=== PATIENT | female | born 1950 | race Caucasian/White ===

== ENCOUNTER 2016-07-30 16:09 | Emergency (ER) | payer OTHER, MEDICARE ==
[2016-07-30 16:15] VITALS: TEMP 97.5
--- NOTE | 2016-07-30 16:27 | CPEKG ---
Heart Rate: 54 RR Interval: 1111 P-R Interval: 192 QRSD Interval: 94 QT Interval: 452 QTC Interval: 429 P [place]: -17 QRS [place]: 7 T Wave [place]: 34 EKG Severity - NORMAL ECG - EKG Impression: SINUS RHYTHM Electronically Signed By: Meagan Cazares 30-Jul-2016 20:03:44
--- NOTE | 2016-07-30 16:32 | EDPHY ---
H & P Time Seen by Provider: 07/30/16 16:26 HPI/ROS: CHIEF COMPLAINT: chest pain HISTORY OF PRESENT ILLNESS: Patient is a 65-year-old female with a history of high cholesterol who presents emergency department with shoulder pain. Patient states she has had 4 episodes of bilateral shoulder pain over the past 2 weeks. This lasts for less than 5 minutes at a time. It is not associated with exercise. Today she had an episode of bilateral shoulder pain at around noon. She also had lightheadedness and dizziness. She denies any shortness of breath or cough. She feels well at this time. No recent travel. No leg pain or swelling. She states she has a significant history for cardiac disease. Her father had a heart attack in his 40s. Her brother had an acute HI 2 months ago. REVIEW OF SYSTEMS: My complete review of systems is negative except as mentioned in the HPI. Past Medical/Surgical History: Includes hyperlipidemia Past surgical history: Noncontributory Social history: The patient does not smoke. Family history: Patient's father had an HI in his 40s. The patient's younger brother had an HI 2 months ago. Smoking Status: Never smoked Physical Exam: Vitals noted GENERAL: Well-appearing, in no acute distress, alert. HEENT: Eyes normal to inspection, normal pharynx, no signs of dehydration. NECK: No thyromegaly, no lymphadenopathy, supple. RESPIRATORY: Clear to auscultation bilaterally, no rales, rhonchi or wheezing. CVS: Regular rate and rhythm, no rubs, murmurs, or gallops. ABDOMEN: Soft, nontender, nondistended, no organomegaly. BACK: Normal to inspection, no CVA tenderness. SKIN: Normal color, no rash, warm, dry. No pallor. EXTREMITIES: No pedal edema, no calf tenderness, no Homans sign or cords, no joint swelling. NEURO/PSYCH: Alert and oriented, normal mood and affect, normal motor sensory exam. Constitutional: Initial Vital Signs Temperature (C) 36.4 C 07/30/16 16:12 Heart Rate 61 07/30/16 16:12 Respiratory Rate 16 07/30/16 16:12 Blood Pressure 140/89 H 07/30/16 16:12 O2 Sat (%) 98 07/30/16 16:12 Allergies/Adverse Reactions: No Known Allergies Allergy (Unverified 07/30/16 16:12) Home Medications: Medication Instructions Recorded Aspirin 07/30/16 Lipitor 07/30/16 Medical Decision Making - Diagnostics EKG Interpretation: EKG shows normal sinus rhythm, rate at 54, normal axis, normal intervals. There are no ST or T-wave abnormalities. EKG is normal as interpreted by me. ED Course/Re-evaluation: In the emergency department I discussed possible etiologies with the patient. I answered all her questions. She states that she called Dr. Burgess earlier today was told to come to the emergency department for her symptoms. She took an aspirin prior to arrival. Laboratory studies, EKG and chest x-ray were ordered. The patient's laboratory studies were unremarkable. Troponin was negative. Chest x-ray normal. I discussed the results with the patient. Patient's insurance special agent was paged. I discussed the case with Dr. Burgess from Cardiology. She recommended a repeat troponin at 3 hours. This was ordered for 7:30 p.m.. I discussed the plan with the patient and answered all her questions. On recheck the patient was chest pain-free with no shortness of breath. Patient's repeat troponin was unchanged and normal. I discussed the result with the patient. I answered all her questions. She was given warnings prior to leaving. She will return with worsening symptoms. She will take an aspirin daily. Differential Diagnosis: My differential includes but is not limited to ACS, acute HI, aortic aneurysm, or dissection, pericarditis, myocarditis, pneumonia, PE, disc disease - Data Points Laboratory Results: Laboratory Results 07/30/16 16:25 07/30/16 16:25 07/30/16 07/30/16 19:37 16:25 WBC 7.63 10^3/uL (3.80-9.50) RBC 4.52 10^6/uL (4.18-5.33) Hgb 13.9 g/dL (12.6-16.3) Hct 42.6 % (38.0-47.0) MCV 94.2 fL (81.5-99.8) MCH 30.8 pg (27.9-34.1) MCHC 32.6 g/dL (32.4-36.7) RDW 13.7 % (11.5-15.2) Plt Count 287 10^3/uL (150-400) MPV 10.9 fL (8.7-11.7) Neut % (Auto) 50.1 % (39.3-74.2) Lymph % (Auto) 35.5 % (15.0-45.0) [place] % (Auto) 8.7 % (4.5-13.0) Eos % (Auto) 4.2 % (0.6-7.6) Baso % (Auto) 1.4 % (0.3-1.7) Nucleat RBC Rel Count 0.0 % (0.0-0.2) Absolute Neuts (auto) 3.82 10^3/uL (1.70-6.50) Absolute Lymphs (auto) 2.71 10^3/uL (1.00-3.00) Absolute Monos (auto) 0.66 10^3/uL (0.30-0.80) Absolute Eos (auto) 0.32 10^3/uL (0.03-0.40) Absolute Basos (auto) 0.11 H 10^3/uL (0.02-0.10) Absolute Nucleated RBC 0.00 10^3/uL (0-0.01) Immature Gran % 0.1 % (0.0-1.1) Immature Gran # 0.01 10^3/uL (0.00-0.10) Sodium 145 H mEq/L (134-144) Potassium 3.9 mEq/L (3.5-5.2) Chloride 107 mEq/L (97-110) Carbon Dioxide 24 mEq/l (22-31) Anion Gap 14 mEq/L (8-16) BUN 15 mg/dL (7-23) Creatinine 0.7 mg/dL (0.6-1.0) Estimated GFR > 60 Glucose 83 mg/dL (70-100) Calcium 9.7 mg/dL (8.5-10.4) Troponin I < 0.012 ng/mL < 0.012 ng/mL (0-0.034) (0-0.034) Departure - Departure Disposition: Home, Routine, Self-Care Clinical Impression: Shoulder pain, bilateral Qualifiers: Chronicity: acute Qualifier Code: (M25.511) Pain in right shoulder Condition: Good Instructions: Chest Pain (ED) Additional Instructions: Your initial laboratory studies, EKG and chest x-ray were normal. You need close follow-up with cardiology. I discussed the plan with Dr. Karla Burgess. She is partners with Dr. Vera. Return with increasing chest pain, shortness of breath, shoulder pain or any other concerns. Take an aspirin daily. Referrals: Dusty Vera MD [Medical Doctor] - 2-3 days, call for appt. Shilpa Thomas MD [Primary Care Provider] - 2-3 days, call for appt.
[2016-07-30 17:02] LABS: % IMMATURE GRANULYOCYTES 0.1 % (0.0-1.1); ABSOLUTE IMMATURE GRANULOCYTES 0.01 10^3/uL (0.00-0.10); ADD DIFF? NO; ADD MORPH? NO; ADD SCAN? NO; ATYPICAL LYMPHOCYTE FLAG 10 (0-99); FRAGMENT RBC FLAG 0 (0-99); HEMATOCRIT 42.6 % (38.0-47.0); HEMOGLOBIN 13.9 g/dL (12.6-16.3); LEFT SHIFT FLG 0 (0-99); LIPEMIA HEMOLYSIS FLAG 80 (0-99); MEAN CELL HEMOGLOBIN 30.8 pg (27.9-34.1); MEAN CELL HEMOGLOBIN CONCENTR. 32.6 g/dL (32.4-36.7); MEAN CELL VOLUME 94.2 fL (81.5-99.8); MEAN PLATELET VOLUME 10.9 fL (8.7-11.7); PLATELET CLUMPS FLAG 0 (0-99); PLATELET COUNT 287 10^3/uL (150-400); RED BLOOD CELL COUNT 4.52 10^6/uL (4.18-5.33); RED CELL DISTRIBUTION WIDTH 13.7 % (11.5-15.2)
[2016-07-30 17:13] LABS: ANION GAP 14 mEq/L (8-16); CALCIUM 9.7 mg/dL (8.5-10.4); CARBON DIOXIDE 24 mEq/l (22-31); CHLORIDE 107 mEq/L (97-110); CREATININE 0.7 mg/dL (0.6-1.0); GLOMERULAR FILTRATION RATE > 60; GLUCOSE 83 mg/dL (70-100); POTASSIUM 3.9 mEq/L (3.5-5.2); SODIUM 145 mEq/L (134-144)
[2016-07-30 17:25] LABS: TROPONIN I < 0.012 ng/mL (0-0.034)
--- NOTE | 2016-07-30 17:42 | DX ---
PA and lateral chest. Clinical History: Chest Pain Comparison Study: None available. Findings: The lungs are clear. No pleural disease identified. Heart size is normal. Visualized osseous structures appear normal. Impression: Normal chest.
[2016-07-30 20:18] VITALS: PULSE 59; RESP 18; O2SAT 97
[2016-07-30 20:25] VITALS: BP 132/66
== END 2016-07-30 20:25 | disposition home or self-care (01) ==
DX: M25.511 Pain in right shoulder (principal)

== ENCOUNTER → 2016-08-22 | Outpatient (CLI) | payer OTHER, MEDICARE ==
[~2016-08-22] MED LIST: IOPAMIDOL (ISOVUE-370) 150 ML BTL IV ONE
== END ==
LOC: FIMAGING 11:38
PROVIDERS: ATTEND Internal Medicine Cardiovascular Disease
DX: I25.10 Atherosclerotic heart disease of native coronary artery without angina pectoris (principal); R07.89 Other chest pain; R42 Dizziness and giddiness
CPT/HCPCS: 75574; Q9967

== ENCOUNTER → 2016-08-22 | Outpatient (CLI) | payer OTHER, MEDICARE | LOC: BHFA 11:30 | PROVIDERS: ATTEND Internal Medicine Cardiovascular Disease | DX: R42 Dizziness and giddiness (principal) ==

== ENCOUNTER → 2016-10-24 | Outpatient (CLI) | payer OTHER, MEDICARE | LOC: FIMAGING 12:37 | DX: Z12.31 Encounter for screening mammogram for malignant neoplasm of breast (principal) | CPT/HCPCS: G0202 ==

== ENCOUNTER → 2017-01-03 | Outpatient (CLI) | payer OTHER, MEDICARE | LOC: BMCIMAGING 10:11 | PROVIDERS: ATTEND Internal Medicine | DX: Z13.820 Encounter for screening for osteoporosis (principal); M85.80 Other specified disorders of bone density and structure, unspecified site ==

== ENCOUNTER → 2017-08-01 | Outpatient (CLI) | payer OTHER, MEDICARE | LOC: BMCIMAGING 12:29 | PROVIDERS: ATTEND Psychiatry & Neurology Neurology | DX: R09.89 Other specified symptoms and signs involving the circulatory and respiratory systems (principal) ==

== ENCOUNTER → 2017-10-30 | Outpatient (CLI) | payer OTHER, MEDICARE | LOC: FIMAGING 11:21 | PROVIDERS: ATTEND Internal Medicine | DX: Z12.31 Encounter for screening mammogram for malignant neoplasm of breast (principal) ==

== ENCOUNTER → 2018-08-27 | Outpatient (CLI) | payer OTHER, MEDICARE | LOC: CIMAGING 13:57 | PROVIDERS: ATTEND Internal Medicine | DX: R22.1 Localized swelling, mass and lump, neck (principal) | CPT/HCPCS: 76536-PO ==